=== PATIENT | female | born 1935 | race Caucasian/White ===

== ENCOUNTER 2017-06-30 18:01 | Emergency (ER) | payer OTHER ==
[~2017-06-30] VITALS: Ht 157.5 cm; Wt 69.4 kg
[2017-06-30 22:26] LABS: PLATELET COUNT 182 x10^3mcL (130-400)
[2017-06-30 22:27] LABS: UA SPECIFIC GRAVITY 1.015 (1.005-1.035); microscopic required? YES; urine erythrocyte NEGATIVE (NEGATIVE)
[2017-06-30 22:28] LABS: RED CELL DISTRIBUTION WIDTH 20.2 % (11.5-14.5)
[2017-06-30 22:37] LABS: CALCIUM 8.5 mg/dL (8.5-10.1); CARBON DIOXIDE 30.2 mmol/L (21-32); CHLORIDE SERUM 104 mmol/L (98-107); CREATININE SERUM 0.6 mg/dL (0.6-1.0); GLUCOSE SERUM 76 mg/dL (74-106); POTASSIUM SERUM 3.8 mmol/L (3.5-5.1); SODIUM SERUM 140 mmol/L (136-145)
[2017-06-30 22:41] LABS: ALBUMIN 3.3 g/dL (3.4-5.0); ALKALINE PHOSPHATASE 54 U/L (46-116); ALT/SGPT 21 U/L (14-59); AMYLASE 116 U/L (25-115); AST/SGOT 25 U/L (15-37); BILIRUBIN TOTAL 0.4 mg/dL (0.20-1.00); LIPASE 206 IU/L (73-393); TOTAL PROTEIN, SERUM 7.7 g/dL (6.4-8.2)
[2017-07-01 00:13] VITALS: BP 137/75
== END 2017-07-01 00:13 | disposition home or self-care (01) ==
LOC: ED 18:01
PROVIDERS: Emergency Medicine
DX: N39.0 Urinary tract infection, site not specified (principal); E11.9 Type 2 diabetes mellitus without complications; I10 Essential (primary) hypertension
CPT/HCPCS: 36415; J2270; Q0162

== ENCOUNTER 2019-07-08 17:23 | Emergency (ER) | payer OTHER ==
[~2019-07-08] VITALS: Ht 152.4 cm; Wt 69.1 kg
[2019-07-08 17:42] VITALS: Ht 152.4 cm; Wt 69.1 kg
[2019-07-08 21:03] VITALS: BP 127/69
== END 2019-07-08 21:03 | disposition home or self-care (01) ==
LOC: ED 17:23
DX: S70.02XA Contusion of left hip, initial encounter (principal); M13.862 Other specified arthritis, left knee; I10 Essential (primary) hypertension; E11.9 Type 2 diabetes mellitus without complications; W01.0XXA Fall on same level from slipping, tripping and stumbling without subsequent striking against object, initial encounter; Y93.89 Activity, other specified; Y92.89 Other specified places as the place of occurrence of the external cause; Y99.8 Other external cause status

== ENCOUNTER 2019-07-09 21:04 | Emergency (ER) | payer OTHER ==
[~2019-07-09] VITALS: Ht 162.6 cm; Wt 90.7 kg
[2019-07-09 21:05] VITALS: Ht 162.6 cm; Wt 90.7 kg
[2019-07-09 21:34] LABS: BASOPHIL % 0.3 % (0-2); PLATELET COUNT 170 x10^3mcL (130-400); RED CELL DISTRIBUTION WIDTH 13.2 % (11.5-14.5)
[2019-07-09 21:41] LABS: CALCIUM 8.4 mg/dL (8.5-10.1); CARBON DIOXIDE 28.9 mmol/L (21-32); CHLORIDE SERUM 100 mmol/L (98-107); CREATININE SERUM 0.7 mg/dL (0.6-1.0); GLUCOSE SERUM 273 mg/dL (74-106); POTASSIUM SERUM 4.3 mmol/L (3.5-5.1); SODIUM SERUM 136 mmol/L (136-145)
[2019-07-09 21:46] LABS: ALBUMIN 3.4 g/dL (3.4-5.0); ALKALINE PHOSPHATASE 114 U/L (46-116); ALT/SGPT 19 U/L (14-59); AMYLASE 98 U/L (25-115); AST/SGOT 18 U/L (15-37); BILIRUBIN TOTAL 0.4 mg/dL (0.20-1.00); LIPASE 187 IU/L (73-393); TOTAL PROTEIN, SERUM 7.9 g/dL (6.4-8.2)
[2019-07-09 23:32] VITALS: BP 137/58
== END 2019-07-09 23:32 | disposition home or self-care (01) ==
LOC: ED 21:04
PROVIDERS: Emergency Medicine
DX: T40.4X5A Adverse effect of other synthetic narcotics, initial encounter (principal); I10 Essential (primary) hypertension; E11.9 Type 2 diabetes mellitus without complications; Y92.89 Other specified places as the place of occurrence of the external cause
CPT/HCPCS: 82962; J2405; J2765; J7030